=== PATIENT | male | born 1965 | race Caucasian/White ===

== ENCOUNTER 2024-02-21 12:33 | Outpatient (CLI) | payer OTHER, SELFPAY ==
--- NOTE | 2024-02-21 08:00 | DI.RAD_ITS ---
Exam(s) XR STANDING ALIGNMENT EXAM: XR STANDING ALIGNMENT CLINICAL HISTORY: BILATERAL KNE PAIN. TECHNIQUE: 2D digital imaging was performed. COMPARISON: No exams were available for comparison FINDINGS: 3 views There is relatively symmetrical moderate narrowing of the medial compartments of both knees as well a s symmetrical preservation of height of the lateral compartments of both knees. Both hips appear unr emarkable as do both ankles. Bone density is normal. No osseous lesions. IMPRESSION: Moderate degenerative narrowing of the medial compartments of both knees. DATA REPOSITORY: RADIATION DOSE DELIVERED:
--- NOTE | 2024-02-21 08:00 | DI.RAD_ITS ---
Exam(s) XR KNEE LT 3V AP,LAT,WYATT EXAM: XR KNEE LT 3V AP,LAT,WYATT CLINICAL HISTORY: BILATERAL KNEE PAIN. TECHNIQUE: 2D digital imaging was performed. Three views. COMPARISON: CR XR KNEE RT 3V AP,LAT,WYATT from 02/21/2024 FINDINGS: BONES: No acute fracture is present. No bony destructive lesion is seen. JOINTS: Severe narrowing of the medial femoral tibial joint space. Periarticular spurring and sclero sis. Varus angulation and widening of the lateral femoral tibial joint space. Periarticular spurrin g throughout. Patellofemoral joint space is maintained. No joint effusion is seen. SOFT TISSUE: Normal. IMPRESSION: Advanced degenerative changes of the medial femoral tibial joint. DATA REPOSITORY: RADIATION DOSE DELIVERED:
--- NOTE | 2024-02-21 08:00 | DI.RAD_ITS ---
Exam(s) XR KNEE RT 3V AP,LAT,WYATT EXAM: XR KNEE RT 3V AP,LAT,WYATT CLINICAL HISTORY: BILATERAL KNEE PAIN. TECHNIQUE: 2D digital imaging was performed. Three views. COMPARISON: No exams were available for comparison FINDINGS: BONES: No acute fracture is present. No bony destructive lesion is seen. JOINTS: Severe narrowing of the medial femoral tibial joint space. Mild sclerosis and mild periartic ular spurring. Varus angulation and widening of the lateral femoral tibial joint space. Patellofemo ral joint is maintained shows mild periarticular spurring. No joint effusion is seen. SOFT TISSUE: Normal. IMPRESSION: Advanced degenerative changes of the medial femoral tibial joint. DATA REPOSITORY: RADIATION DOSE DELIVERED:
== END 2024-02-21 12:34 | disposition home or self-care (01) ==
LOC: DIORS 12:34
PROVIDERS: Visit Provider Student in an Organized Health Care Education/Training Program
DX: M25.561 Pain in right knee (principal); M25.562 Pain in left knee; M17.11 Unilateral primary osteoarthritis, right knee; M17.12 Unilateral primary osteoarthritis, left knee
CPT/HCPCS: 73562; 77073

== ENCOUNTER 2024-03-17 01:00 | Outpatient (CLI) | payer OTHER, SELFPAY ==
[2024-03-17 11:21] LABS: HCT 38.3 % (40.0-50.0); HGB 13.3 g/dL (13.5-17.5); MCH 29.3 pg (27.0-33.0); MCHC 34.7 % (32.0-36.0); MCV 84 fL (80-95); MPV 10.1 fL (8.0-11.0); Platelet Count 285 10^3/uL (130-400); RBC 4.54 10^6/uL (4.36-5.78); RDW 13.1 % (11.8-14.1); RDW-SD 39.9 fL; WBC 10.68 10^3/uL (4.4-10.8)
[2024-03-17 11:46] LABS: Anion Gap 6.7 mmol/L (3-11); BUN 18 mg/dL (7-18); CO2 28.3 mmol/L (21.0-32.0); Calcium 9.4 mg/dL (8.5-10.1); Chloride 99 mmol/L (98-107); Estimated GFR 86.16 (mL/min/1.73m2); Glucose 173 mg/dL (74-106); Potassium 3.9 mmol/L (3.5-5.1); Sodium 134 mmol/L (136-145)
[2024-03-17 11:55] LABS: Hemoglobin A1C 7.4 % (<5.7)
[2024-03-17 12:13] LABS: TSH (W/Ref FT4) 3.45 uIU/mL (0.36-3.74)
== END 2024-03-17 01:01 | disposition home or self-care (01) ==
LOC: LBO 01:00
PROVIDERS: Physician Assistant; Visit Provider Student in an Organized Health Care Education/Training Program
DX: M17.11 Unilateral primary osteoarthritis, right knee (principal); Z01.818 Encounter for other preprocedural examination; E03.9 Hypothyroidism, unspecified; E11.9 Type 2 diabetes mellitus without complications
CPT/HCPCS: 36415; 80048; 85027; 83036; 84443

== ENCOUNTER 2024-04-25 11:47 | Day surgery (SDC) | payer OTHER, SELFPAY ==
[2024-04-25] VITALS (9 sets, daily range): BP systolic 118–134; BP diastolic 58–87; PULSE 73–88; RESP 14–20; TEMP 36–37; O2SAT 93–98; BMI 35.4
--- NOTE | 2024-04-25 10:04 | W.PM.DS.N ---
Date of service: 04/25/24 Time of Service: 14:59 Discharge Plan Disposition Patient Disposition: Home Condition: Good Discharge Details Reason For Visit: Right knee DJD Attending Provider: Getachew Fowler Primary Care Provider: Kate Mcknight Home Meds and New Rx's Prescriptions: New acetaminophen 500 mg tablet 1,000 mg PO Q8H PRN Qty: 90 0RF Rx Instructions: Take two tablets up to every 8 hours as needed for pain celecoxib [Celebrex] 200 mg capsule 200 mg PO BID PRNQty: 60 0RF Rx Instructions: Take one tablet twice daily for pain and inflammation aspirin 81 mg tablet,delayed release (DR/EC) 81 mg PO BID 30 Days Qty: 60 0RF docusate sodium [Colace] 100 mg capsule 100 mg PO BID Qty: 30 0RF gabapentin 300 mg capsule 300 mg PO QHS Qty: 14 0RF Rx Instructions: Take one tablet at bedtime Continued omeprazole 20 mg capsule,delayed release(DR/EC) 20 mg PO DAILY cholecalciferol (vitamin D3) 125 mcg (5,000 unit) capsule 125 mcg PO DAILY cyclobenzaprine 10 mg tablet 10 mg PO HS ascorbic acid (vitamin C) 1,000 mg capsule 1 g PO Q6H valsartan 320 mg tablet 320 mg PO DAILY amlodipine 10 mg tablet 10 mg PO DAILY hydrochlorothiazide 25 mg tablet 25 mg PO DAILY levothyroxine 88 mcg capsule 88 mcg PO DAILY atorvastatin 20 mg tablet 20 mg PO DAILY sitagliptin 100 mg tablet 100 mg PO DAILY Qty: 30 3RF glipizide 5 mg tablet 5 mg PO DAILY Qty: 30 3RF Discontinued celecoxib [Celebrex] 100 mg capsule 100 mg PO BID acetaminophen [8 Hour Pain Reliever] 650 mg tablet extended release 650 mg PO Q8H PRN No Action oxycodone 5 mg tablet 5 mg PO Q4H MDD 6 tabs PRN (Reason: pain) Qty: 18 0RF Rx Instructions: Take one tablet up to every 4 hours as needed for severe postoperative pain Discharge Instructions Additional Instructions: Total Knee Discharge Instructions Activity: The most important activity is to walk and to work on gentle motion (both flexion and extension). You should try to take short walks a few times a day. It is important that when resting you work on keeping the knee straight. Avoid putting a pillow behind the knee as this will encourage flexion. Work on range of motion exercises as provided by Physical Therapy. - Start outpatient physical therapy within 2 weeks. - You should wear the NILESH hose on both legs for 2 weeks. You may remove these at night. You may also use any compression sock in place of the NILESH hose. - Utilize [employer] to review exercises, see videos on exercises and obtain basic information pertaining to your surgery and your recovery. Dressing: Remove the Jeremie wrap by 2 days after your surgery and put on the NILESH stocking given to you from the hospital. Keep the surgical dressing (underneath the JEREMIE wrap) in place for at least one week. After the first week it may be removed and replaced with light gauze and tape or nothing. The wound and dressing may get wet after 3 days but avoid soaking the dressing or otherwise it will need to be changed. Many people prefer covering the dressing with cling wrap (saran wrap) to minimize it from getting soaked. If it gets wet, just pat dry. If it starts to peel off then it will need to be changed. Medications: - You should take Tylenol and anti-inflammatory Celebrex as your primary pain control medications. If the Celebrex is too expensive or not covered, please call the office for another alternative (Advil/Ibuprofen or Naproxen/Aleve) - You have been prescribed a stronger pain medication Oxycodone for breakthrough pain, take as needed as prescribed. - You take a stomach acid reduction agent at baseline, Omeprazole, continue to take this daily to help reduce stomach acid and reflux. - You have been prescribed Gabapentin to take at night for restlessness and nerve pain. - You will be taking Aspirin 81mg twice a day for DVT prevention unless instructed otherwise. - If you have constipation you should take Colace (which has been prescribed) or Miralax (which is available [id number]). It takes most people 3-4 days to have a bowel movement. Follow-up: 2 weeks If you have any acute concerns or questions, please do not hesitate to contact the office at [phone]. You may contact Dr. Fowler with any questions after hours through the hospital at [phone] or on his cell phone at [phone]. Stand Alone Forms: Anesthesia Discharge Inst., Makayla.Nerve Block Instructions, Alexander Garcia ([facility]) Referrals: Getachew Fowler MD [ [facility] STAFF PHYSICIAN] - Equipment/Supplies: Walker Activity:: Elevate Remove Dressings/Wound Care:: Do Not Remove Shower/Bathe:: Cover Diet:: As Tolerated Discharge Orders Discharge Orders: Discharge Order (Routine); Ordered 04/25/24 Ordered By: Fely De Santiago Discharge Data Discharge Date/Time-TO BE ENTERED AT DEPARTURE: 04/25/24 18:15 DS: Summary Time Spent with Patient providing and/or coordinating discharge services: Less than 30 minutes Status at Discharge Functional status at discharge: uses cane/walker Overall status at discharge: patient is progressing back to baseline Mental Status: mental status grossly normal Speech and Movement: speech and movement normal Mood: congruent mood Affect: normal affect Quality:SDOH Health Related Social Needs: No Data to Display Exam Psych Mental Status: mental status grossly normal Speech and Movement: speech and movement normal Mood: congruent mood Affect: normal affect DS: Data Vitals/I&O Vitals and I&O: Intake & Output 04/24/24 04/24/24 04/25/24 11:59 23:59 11:59 Weight 239 lb 15.994 oz PFSH All Active Problems (Updated 04/26/24 @ 09:35 by Dacia Hodges RN) History of total right knee replacement (Acute 04/25/24) Hypothyroid (Chronic) Osteoarthritis of knees, bilateral (Acute) Diabetes (Chronic) Hyperlipidemia (Acute) Hypertension (Chronic) Surgical History Status post arthroscopy of right knee Status post excision of lipoma Left shoulder S/P colonoscopy Social History Smoking/Tobacco Use Status: Former Tobacco Use Quit Date: 08/09/83 Smoking risk assessment performed?: Yes Alcohol Intake: former Drug use: Never Substance use type: does not use Housing: house Do you feel safe at home: Yes Do you feel safe in your relationship?: Yes Additional Social history: UTAP Time Spent with Patient Time Spent with Patient: <45 minutes Time was spent: preparing to see the patient(eg.review tests), obtaining and/or reviewing separately otained hiistory and counseling the patient
[2024-04-25] MEDS: Celecoxib 200 MG CAP 400 MG PO (13:06)
[2024-04-25] MEDS: Acetaminophen 500 MG TAB 1000 MG PO (13:06)
[2024-04-25] MEDS: Gabapentin 300 MG CAP PO (13:06)
[2024-04-25] MEDS: Lactated Ringers 1,000 ML 80 ML IV (13:08)
--- NOTE | 2024-04-25 13:27 | W.PREOPHP ---
Assessment and Plan Assessment and plan (1) Degenerative joint disease of right knee: Status: Chronic Assessment and plan: Angeol is a 58-year-old male who has known right knee arthritis. He has failed other nonoperative options and is here today for total knee replacement. His diabetes is much better controlled with a fructosamine less than threshold 293. He has no other acute medical issues. Once again I reviewed knee replacement with him. I had a long discussion in regards to surgical replacement of the knee. I went over in detail the possible complications of knee replacement. These include but are not limited to bleeding, infection, pain, stiffness, weakness, damage to nerves, damage to vessels, damage to muscle and tendon, fracture, leg length inequality, wound healing complications, instability, component loosening, and blood clot. Questions were answered. I again expressed that this is a surgery to improve functional quality of life. After a review of the presented information and risks, Angelo desired to proceed. History of Present Illness Narrative: Angelo is a 58-year-old male who has known arthritis but his right knee. Please of the previous office note and history and physical for more detailed information. He was initially postponed due to increasing hyperglycemia in the setting of newly diagnosed diabetes. He has since modified his medications and has a new primary care team with significant improvement with his glucose readings and his fructosamine level of 254. He continues have pain about the right knee and is here today for a right knee replacement. Denies any chest pain, shortness of breath, or recent illness. Review of Systems All systems reviewed & are unremarkable except as noted in HPI and below PFSH All Active Problems Hypothyroid (Chronic) Degenerative joint disease of right knee (Chronic) Osteoarthritis of knees, bilateral (Acute) Diabetes (Chronic) Hyperlipidemia (Acute) Hypertension (Chronic) Surgical History Status post arthroscopy of right knee Status post excision of lipoma Left shoulder S/P colonoscopy Social History Smoking/Tobacco Use Status: Former Tobacco Use Quit Date: 08/09/83 Smoking risk assessment performed?: Yes Alcohol Intake: former Drug use: Never Substance use type: does not use Housing: house Do you feel safe at home: Yes Do you feel safe in your relationship?: Yes Additional Social history: UTAP Meds Allergies and Home Medications Allergies Allergy/AdvReac Type Severity Reaction Status Date / Time Penicillins Allergy Severe Anaphylaxis Verified 04/25/24 12:31 shellfish derived Allergy Severe Anaphylaxis Verified 04/25/24 12:31 Home Medications ?Medication ?Instructions ?Recorded ?Confirmed ?Type amlodipine 10 mg tablet 10 mg PO DAILY 02/21/24 04/25/24 History hydrochlorothiazide 25 mg tablet 25 mg PO DAILY 02/21/24 04/25/24 History levothyroxine 88 mcg capsule 88 mcg PO DAILY 02/21/24 04/25/24 History valsartan 320 mg tablet 320 mg PO DAILY 02/21/24 04/25/24 History ascorbic acid (vitamin C) 1,000 mg 1 g PO Q6H 03/17/24 04/24/24 History capsule cholecalciferol (vitamin D3) 125 125 mcg PO DAILY 03/17/24 04/25/24 History mcg (5,000 unit) capsule cyclobenzaprine 10 mg tablet 10 mg PO HS 03/17/24 04/25/24 History omeprazole 20 mg capsule,delayed 20 mg PO DAILY 03/17/24 04/25/24 History release atorvastatin 20 mg tablet 20 mg PO DAILY 03/20/24 04/25/24 History glipizide 5 mg tablet 5 mg PO DAILY #30 tabs 03/23/24 04/25/24 Rx sitagliptin 100 mg tablet 100 mg PO DAILY #30 tabs 03/23/24 04/25/24 Rx acetaminophen 500 mg tablet 1,000 mg (2 x 500 mg) PO Q8H PRN 04/25/24 Rx pain #90 tabs aspirin 81 mg tablet,delayed 81 mg PO BID 30 days #60 tabs 04/25/24 Rx release celecoxib 200 mg capsule (Celebrex) 200 mg PO BID PRN #60 caps 04/25/24 Rx docusate sodium 100 mg capsule 100 mg PO BID #30 caps 04/25/24 Rx (Colace) gabapentin 300 mg capsule 300 mg PO QHS #14 caps 04/25/24 Rx oxycodone 5 mg tablet 5 mg PO Q4H PRN #18 tabs 04/25/24 Rx Exam Const General: cooperative, healthy appearing, comfortable and no acute distress Resp Effort & Inspection: normal respiratory effort Auscultation: clear to auscultation bilaterally Cardio Rate: regular rate Rhythm: regular rhythm Results Last Vital Signs Temp 36.2 C L 04/25/24 12:36 Pulse 88 04/25/24 12:36 Resp 16 04/25/24 12:36 BP 128/67 04/25/24 12:36 Pulse Ox 97 04/25/24 12:36
--- NOTE | 2024-04-25 13:56 | W.ANESPRE ---
General Info Date of Service Date Performed: 04/25/24 Height: 5 ft 8 in Weight: 105.7 kg Body Mass Index (BMI): 35.4 Surgical Procedure: Operation Date: 04/25/24 14:10 Proposed Procedure Side Surgeon p Knee Total Arthroplasty Right Getachew Fowler MD Meds Allergies and Home Medications Allergies Allergy/AdvReac Type Severity Reaction Status Date / Time Penicillins Allergy Severe Anaphylaxis Verified 04/25/24 12:31 shellfish derived Allergy Severe Anaphylaxis Verified 04/25/24 12:31 Home Medication ?Medication ?Instructions ?Recorded amlodipine 10 mg tablet 10 mg PO DAILY 02/21/24 hydrochlorothiazide 25 mg tablet 25 mg PO DAILY 02/21/24 levothyroxine 88 mcg capsule 88 mcg PO DAILY 02/21/24 valsartan 320 mg tablet 320 mg PO DAILY 02/21/24 ascorbic acid (vitamin C) 1,000 mg 1 g PO Q6H 03/17/24 capsule cholecalciferol (vitamin D3) 125 125 mcg PO DAILY 03/17/24 mcg (5,000 unit) capsule cyclobenzaprine 10 mg tablet 10 mg PO HS 03/17/24 omeprazole 20 mg capsule,delayed 20 mg PO DAILY 03/17/24 release atorvastatin 20 mg tablet 20 mg PO DAILY 03/20/24 glipizide 5 mg tablet 5 mg PO DAILY #30 tabs 03/23/24 sitagliptin 100 mg tablet 100 mg PO DAILY #30 tabs 03/23/24 acetaminophen 500 mg tablet 1,000 mg (2 x 500 mg) PO Q8H PRN 04/25/24 pain #90 tabs aspirin 81 mg tablet,delayed 81 mg PO BID 30 days #60 tabs 04/25/24 release celecoxib 200 mg capsule (Celebrex) 200 mg PO BID PRN #60 caps 04/25/24 docusate sodium 100 mg capsule 100 mg PO BID #30 caps 04/25/24 (Colace) gabapentin 300 mg capsule 300 mg PO QHS #14 caps 04/25/24 oxycodone 5 mg tablet 5 mg PO Q4H PRN #18 tabs 04/25/24 Current Visit Medications: Current Medications Generic Name Dose Route Start Last Admin Trade Name Freq PRN Reason Stop Dose Admin Acetaminophen 1,000 mg 04/25/24 06:00 04/25/24 13:06 Acetaminophen 500 Mg Tab PO 04/25/24 18:00 1,000 mg PREOP CHERRY Administration Celecoxib 400 mg 04/25/24 06:00 04/25/24 13:06 Celecoxib 200 Mg Cap PO 04/25/24 18:00 400 mg PREOP CHERRY Administration Gabapentin 300 mg 04/25/24 06:00 04/25/24 13:06 Gabapentin 300 Mg Cap PO 04/25/24 18:00 300 mg PREOP CHERRY Administration Hydromorphone HCl 0.5 mg 04/25/24 10:02 Hydromorphone 2 Mg/Ml Syr IVP 05/25/24 10:01 Q2H PRN PRN Ringer's Solution 1,000 mls @ 80 mls/hr 04/25/24 06:00 04/25/24 13:08 IV 05/24/24 23:59 80 mls/hr INFUSION CHERRY Administration Cefazolin Sodium/Dextrose 2 gm in 50 mls @ 100 mls/hr 04/25/24 06:00 Ancef Duplex IVPB 04/25/24 18:00 PREOP CHERRY Tranexamic Acid/Sodium Chloride 1,000 mg in 100 mls @ 600 mls/hr 04/25/24 06:00 IVPB 04/25/24 18:00 PREOP CHERRY Cefazolin Sodium/Dextrose 1 gm in 50 mls @ 100 mls/hr 04/25/24 12:00 Ancef Duplex IVPB 04/26/24 04:29 Q8H CHERRY IV Miscellaneous Supplies 1 each 04/25/24 06:00 Iv Access IV 05/24/24 23:59 DIRECTED CHERRY Oxycodone HCl 0 mg 04/25/24 10:02 Oxycodone 5 Mg Tab PO 05/25/24 10:01 Q3H PRN PRN Pain Sodium Chloride 0 ml 04/25/24 06:00 Normal Saline Flush 10 Ml Syr IV 05/24/24 23:59 PRN PRN Sodium Chloride 0 ml 04/25/24 06:00 Normal Saline 10 Ml Vial IJ 05/24/24 23:59 DIRECTED PRN Sterile Water 0 ml 04/25/24 06:00 Water,Injection,Sterile 10 Ml Vial IJ 05/24/24 23:59 DIRECTED PRN PFSH Active Problems Active Problems: Problem Status Onset Code Hypothyroid Chronic E03.9 Degenerative joint disease of right knee Chronic M17.11 Osteoarthritis of knees, bilateral Acute M17.0 Diabetes Chronic E11.9 Hyperlipidemia Acute E78.5 Hypertension Chronic I10 Surgical History Surgical History Status post arthroscopy of right knee Status post excision of lipoma Left shoulder S/P colonoscopy Tobacco Smoking/Tobacco Use Status: Former Tobacco Use Alcohol Alcohol Intake: former Substance Use Substance use: Never Substance use type: does not use Vital Signs and Lab Results Vital Signs Most Recent Vital Signs in EMR: Most Recent Vital Signs Temp Pulse Resp BP Pulse Ox 36.2 C L 88 16 128/67 97 04/25/24 12:36 04/25/24 12:36 04/25/24 12:36 04/25/24 12:36 04/25/24 12:36 Point of Care Results Point of Care Results: Finger Stick Blood Glucose 124 04/25/24 12:41 Lab Results Blood Type / Crossmatch: No Data to Display Complete Blood Count: No Data to Display Complete Metabolic Panel: No Data to Display Liver Function Panel: No Data to Display Coagulation Panel: No Data to Display Cardiac Panel: No Data to Display Arterial Blood Gas: No Data to Display Venous Blood Gas: No Data to Display Pancreas Panel: No Data to Display Thyroid Panel: No Data to Display Infectious Disease: No Data to Display Blood Cultures: No Data to Display Toxicology Panel: No Data to Display Anesthesia Assessment and Plan Anesthesia History Personal History: No History of General Anesthesia Family History: No Family History of Anesthesia Complications Exercise Tolerance Exercise Tolerance: Metabolic Equivalents>4 Pertinent Negatives Pertinent Negatives: No Symptoms of GERD, No Major Cardiovascular Symptoms or Complaints, No Major Pulmonary Symptoms or Complaints and No History of CVA/TIA Cardiac & Pulmonary Exam Cardiac Exam: Normal S1/S2 Heart Sounds Pulmonary Exam: Clear Bilateral Breath Sounds Implantable Cardiac Device Does patient have a Pacemaker or an ICD?: No Airway Exam Known Difficult Airway: No Mallampati Class: 2 Mouth Opening: Normal (> 3cm) Thyromental Distance: Less than 3 cm Neck Range of Motion: Full ROM Neck Circumference: Normal Teeth Condition: Normal Dentition ASA Classification ASA Score: ASA 2 Emergency Case?: No NPO Status NPO Status: NPO Clears >2 hours, Solids >8 hours Anesthesia Plan Resuscitation Status: Full Code Anesthesia Technique: Spinal Anesthesia Airway Planned: Natural Airway Pain Management: Surgeon and patient request nerve block Monitors Used: Standard Monitors
[2024-04-25] MEDS: ceFAZolin 2 GM/50 ML BAG IVPB (14:42)
[2024-04-25] MEDS: TRANEXAMIC ACID/SOD. CHL. 1,000 MG/100 ML BAG 600 MG IVPB (15:00)
--- NOTE | 2024-04-25 15:17 | W.ANESNERVE ---
Nerve Block Single Injection Procedure Date and Time Date Performed: 04/25/24 Procedure Start: 14:05 Location Where Procedure Performed Procedure Location: Day Surgery Unit Reason Performed: Postoperative Analgesia Requesting Provider: Getachew Fowler Timeout Performed Timeout Performed: Yes Monitoring Used ECG, Blood Pressure, SpO2 and See EMR for corresponding vital signs Sterility Sterility: Hand Hygiene, Surgical Cap, Surgical Mask, Sterile Gloves and Chlorhexidine Sedation Given During Procedure Sedation Given (Indicate Dose Given): No Sedation given Patient Mental Status Patient Mental Status: Awake Nerve Block 1st Nerve Block: Laterality: Right Block Type: Adductor Canal Ultrasound Image Saved?: Yes Needle / Catheter Used: 100mm SonoPlex II Local Anesthetic Bolus (Indicate Dose Given): Lidocaine used for local infiltration of skin, Injected in 3-5ml increments after negative blood aspiration, Bupivacaine 0.25% Dose:: 10ml and Exparel Dose:: 10ml Additives (Indicate Dose Given): None Ultrasound: Sterile probe cover and gel used Nerve Stimulator: Not Used Paresthesia: None Procedure Tolerated: No Complications and Patient tolerated well Procedure Outcome: Successful Performed By: Bob Pacheco
--- NOTE | 2024-04-25 16:37 | ROE_ITS ---
Date of service: 04/25/24 Time of Service: 14:45 Operative Note Operative Note DATE OF PROCEDURE: 04/25/24 PRE-OP DIAGNOSIS: Right Knee Osteoarthritis POST-OP DIAGNOSIS: same PROCEDURE: Right Total Knee Replacement SURGEON: Getachew Fowler SLIP COVER SEWER: Fely De Santiago ANESTHESIA TYPE: Spinal Refer to Anesthesia Record ESTIMATED BLOOD LOSS: 150 PATHOLOGY: none sent TOURNIQUET TIME: 0 COMPLICATIONS: None Patient was transported to: PACU Patient's condition: stable Implants: 1. Depuy Attune Cementless Cruciate Retaining Femoral Component, Size 7 2. Depuy Attune Cementless Fixed Bearing Tibial Component, Size 7 3. Depuy Attune 7x6 CR/FB Poly 4. Depuy Attune Patellar Component, Size 38 Indications: I have seen Angelo in clinic for symptoms of knee arthritis, confirmed with radiographic findings. He has exhausted nonoperative methods and was having significant limitations in daily function and desired better function and less pain. I discussed the technical details of a knee replacement. I explained the risks of the procedure to include, but not limited to, bleeding, infection, pain, stiffness, fracture, damage to nerves and vessels, damage to muscles and tendons, loosening, need for repeat procedure, blood clot and cardiopulmonary d emise. Despite these risks, Angelo elected to proceed. Findings: There was significant signs of arthritis throughout the knee, mostly concentrated in the medial compartment but still throughout. Procedure Description: Angelo was greeted in the preoperative holding area where the correct side was identified and marked. The consent was reviewed with the patient and signed. The history and physical was updated. All questions were answered. Preoperative medications were administered: Acetaminophen 1000mg, Celebrex 400mg, and Gabapentin 300mg. An adductor canal block was then administered by the anesthesia team in the DSU. Angeol was taken back to the operating room. A spinal anesthestic was then administered. The patient was placed into the supine position on the operating room table. A nonsterile tourniquet was placed high onto the leg but only used for cementing. Posts were placed for positioning during the procedure. All bony prominences were well padded. Prophylactic antibiotics in the form of Cefazolin were administered. 1g of Tranxemic Acid was given intravenously within 30 minutes of incision. The right leg was then prepped with Chloraprep and draped in a standard fashion with impervious stockinette. A second prep with Chloraprep was performed prior to application of Iodine impregnated skin protection. A timeout to confirm correct identity, side and site, procedure, allergies, anesthesia, and medical concerns was performed. With the knee in some flexion, a midline incision was made overlying the knee. Full thickness skin flaps were raised once the extensor mechanism was encountered. These were raised medially and laterally. Any bleeding was controlled with electrocautery. Once the extensor mechanism was fully exposed, a medial parapatellar arthrotomy was performed in a flexed position. All bleeding from the arthrotomy and the geniculate arteries was coagulated. A medial subperiosteal peel was performed with electrocautery to the midcoronal plane. Due to the significant varus deformity the entire medial tibial plateau was exposed. The fat pad was removed while keeping the patellar tendon protected. The anterior distal femur synovium was removed for later visualization. The ACL and PCL were resected and the anterior horn of the lateral meniscus was transected. The knee was then flexed with the patella everted. Large osteophytes from the tibia were removed. Large osteophytes from the femur were removed. Using a step drill, and based on preoperative templating, the femoral canal was entered. This was done with a step drill without any difficulty. The intramedullary distal femoral cut guide was inserted, set to a 5 degree valgus cut and 9mm cut thickness. The distal femoral cut guide was then held in position and pinned. With the soft tissues protected, the distal cut was performed. This was passed over a few times to ensure a planar cut. I then turned attention to the tibia. The extramedullary guide was placed onto the leg. The distal aspect was slid medial to adjust for position of center of ankle and stay in line with shaft of the tibia. Approximately 3-5 degrees of posterior slope was kept in the proximal cutting guide. The center of the guide was aligned with the PCL. The stylus was used to assess cut thickness. The medial side, most involved side, was set for a 4mm cut. This was then held in position and pinned into place with 2 additional pins and a cross pin for stability. The medial and lateral collateral ligaments were protected and the cut was performed. With this completed, it was assessed and noted to be of appropriate dimensions. The guide was removed. A spacer block was inserted and the knee was brought into extension. The 6mm spacer block provided full extension, without hyperextension and with stability of both the medial and lateral collateral ligaments was assessed. The pins from the femur and the tibia were then removed. The distal femur was then sized. The anterior stylus was placed onto the lateral ridge of the anterior femur. This indicated a size 7 femur. The external rotation of the guide was adjusted to 3 degrees to match the epicondylar axis, perpendicular to Malik?s line. The 4-in-1 cutting guide was the placed. The posterior medial femur cut was evaluated and appeared of good thickness. The spacer block was inserted underneath the cutting guide and stability was confirmed in 90 degrees of flexion. An jessica wing was used to confirm appropriate position of the anterior cut to avoid notching. This cutting guide was ensured to be flush on the cut surface and then pinned into place with headed pins. While protecting the soft tissues, quad tendon, and collateral ligaments, the anterior and posterior cuts were performed with a saw. The central two pins were removed and the posterior and anterior chamfers were cut next. The notch-cutting guide was placed. This was pinned to lateralize the femoral component as much as possible while keeping it flush on the cut surface. This was then pinned into position. A reciprocating saw was used to make the notch cut. A rasp smoothed the cut surfaces. The medial and lateral menisci were removed. A trial femoral component was then inserted, impacted down to the cut surfaces, and the lug holes were drilled. A provisional trial tibial component was placed and the knee was brought through range of motion. There was noted to be excellent extension and flexion. There was no significant instability. The patella was tracking without thumbs. A size 6mm polyethylene component provided the best range of motion and stability with less than 2mm gapping with medial and lateral stress and full extension without significant hyperextension. The tibial cut surface was fully exposed. The tibia was then sized as a 7. The tibia had been previously marked during trialing to correspond to the center of the tibial component to help with rotation. The trial was aligned to this arnoldo, approximately rotated to the medial 1/3rd of the tibial tubercle. The trial was pinned into place. The tibia was prepared with a reamer and a keel punch and lug holes. The knee was then brought into extension and the patella was measured as 27mm. Using the patellar clamp and cut guide, this was resected to a flat surface with at least 13mm of thickness remaining. The size 38 patella fit the best. This was oriented and then clamped into position. The lugs were drilled. The trial components were removed. The final components were opened on the back table. The periosteal and capsular tissues, especially posteriorly, around the knee were then systematically injected with a periarticular cocktail consisting of 246mg of Ropivacaine, 0.5mg of Epinephrine, 0.08mg of Clonidine, and 30mg of Ketorolac, diluted to 100cc. On the back table, with the implants opened, the cement was mixed. One batch of high viscosity cement was prepared with vacuum assistance. After the cement was ready a small amount was placed on the cut surface of the patella and the patellar button was clamped into position and held. While the cement was hardening, the cementless knee components were placed. Starting with the tibial component, the tibia was subluxed anteriorly and the lug holes of the component were lined up. The tibia was then impacted with an impactor and mallet until the tibial component was in contact with the tibia. The final polyethylene component was inserted. Then, the femoral component was inserted. The lug holes were aligned and the component was impacted into position. The knee was irrigated with Surgiphor Betadine solution. This was allowed to sit in the knee for 3 minutes and then it was irrigated out with saline. After the cement had finally cured, approximately 15min, the clamp was removed from the patella and the knee was taken through range of motion. The patella was tracking with a no-thumbs technique. The capsule was then reapproximated with a No. 1 Vicryl at multiple locations. The capsule was finally closed with a No. 2 Stratafix, barbed suture. The second dosing of 1g TXA was started. Deep tissues were then reapproximated with 0 Vicryl and 2-0 Vicryl. The skin was closed with a running 3-0 Monocryl in a subcuticular fashion. This was reinforced with skin glue. A Mepilex silver dressing was applied along with a gwzu-ye-nosad WINSTON wrap. A CryoCuff was applied. Angelo was transferred to the hospital bed without difficulty an suffering no apparent complication. He has a good prognosis. Physical therapy will start today and without restrictions, weight-bearing as tolerated. Aspirin 81mg BID will be used for DVT prophylaxis.
--- NOTE | 2024-04-25 22:13 | W.ANESPOSTOP ---
Postoperative Evaluation Date, Time and Location Date Performed: 04/25/24 Time Performed: 16:31 Patient Location: PACU Vital Signs Most Recent Imported Vital Signs: Most Recent Vital Signs Temp Pulse Resp BP Pulse Ox 36.4 C L 78 16 134/68 95 04/25/24 17:45 04/25/24 17:45 04/25/24 17:45 04/25/24 17:45 04/25/24 17:45 Pain Score Most Recent Pain Score: Most Recent Pain Score Pain Level 4 04/25/24 17:45 Assessment Mental Status: Awake (Alert & Oriented to Patient Baseline) Airway and Respiratory Function: Patent airway with normal (patient baseline) respiratory exam Cardiovascular Function: Hemodynamically Stable Hydration Status: Adequately Hydrated Nausea & Vomiting: No Nausea or Vomiting Pain: Pain is tolerable per patient Peripheral Nerve Block: Patient did not receive a nerve block
== END 2024-04-25 18:15 | disposition home or self-care (01) ==
PROVIDERS: PCP Family Medicine; Visit Provider Student in an Organized Health Care Education/Training Program
PROC: (CPT 27447; principal; 2024-04-25 14:00)
DX: M17.11 Unilateral primary osteoarthritis, right knee (principal); E11.9 Type 2 diabetes mellitus without complications; Z79.84 Long term (current) use of oral hypoglycemic drugs; E03.9 Hypothyroidism, unspecified; I10 Essential (primary) hypertension; E78.5 Hyperlipidemia, unspecified
CPT/HCPCS: 27447; 76942; 97162; C1776; C9290; J0665; J0690; J1100; J2250; J2401; J2405; J2704

== ENCOUNTER 2024-05-11 10:17 | Outpatient (CLI) | payer OTHER, SELFPAY ==
--- NOTE | 2024-05-11 09:30 | DI.RAD_ITS ---
Exam(s) XR KNEE RT 1V XR STANDING ALIGNMENT EXAM: XR STANDING ALIGNMENT CLINICAL HISTORY: 1ST POST OP S/P R TKA. TECHNIQUE: 2D digital imaging was performed. Six images were obtained. COMPARISON: CR XR KNEE LT 3V AP,LAT,WYATT from 02/21/2024 CR XR STANDING ALIGNMENT from 02/21/2024 CR XR KNEE RT 3V AP,LAT,WYATT from 02/21/2024 FINDINGS: BONES: The hips are well maintained. The patient now has a right total knee replacement. The orthop edic hardware appears in good position. No suspicious lucencies are seen about the orthopedic hardwa re. In the left knee, there is marked narrowing of the medial femoral tibial joint. Osteophytes are seen both medially and laterally. The ankles are well maintained.There is no significant leg length discrepancy. SOFT TISSUE: Vascular calcifications are present. There is mild soft tissue swelling around the righ t knee consistent with recent hardware placement. IMPRESSION: 1. Right total knee replacement. 2. Osteoarthritis of the left knee. DATA REPOSITORY: RADIATION DOSE DELIVERED:
== END 2024-05-11 10:18 | disposition home or self-care (01) ==
LOC: DIORS 10:18
PROVIDERS: PCP Family Medicine; Visit Provider Student in an Organized Health Care Education/Training Program
DX: Z96.651 Presence of right artificial knee joint (principal); Z47.1 Aftercare following joint replacement surgery; M17.12 Unilateral primary osteoarthritis, left knee
CPT/HCPCS: 73560; 77073

== ENCOUNTER 2024-09-04 02:55 | Outpatient (CLI) | payer OTHER, SELFPAY ==
[2024-09-04 10:46] LABS: HCT 41.6 % (40.0-50.0); HGB 14.3 g/dL (13.5-17.5); MCH 27.6 pg (27.0-33.0); MCHC 34.4 % (32.0-36.0); MCV 80 fL (80-95); MPV 10.2 fL (8.0-11.0); Platelet Count 307 10^3/uL (130-400); RBC 5.19 10^6/uL (4.36-5.78); RDW 14.2 % (11.8-14.1); RDW-SD 41.1 fL; WBC 9.25 10^3/uL (4.4-10.8)
[2024-09-04 10:55] LABS: Hemoglobin A1C 6.9 % (<5.7)
[2024-09-04 11:01] LABS: Anion Gap 5.8 mmol/L (3-11); BUN 11 mg/dL (7-18); CO2 32.2 mmol/L (21.0-32.0); CREATININE 1.1 mg/dL (0.70-1.30); Calcium 9.5 mg/dL (8.5-10.1); Chloride 99 mmol/L (98-107); Estimated GFR 76.85 (mL/min/1.73m2); Glucose 86 mg/dL (74-106); Potassium 4.1 mmol/L (3.5-5.1); Sodium 137 mmol/L (136-145)
[2024-09-06 14:05] LABS: Fructosamine 266 mcmol/L (200 - 285)
== END 2024-09-04 02:56 | disposition home or self-care (01) ==
LOC: LBO 02:55
PROVIDERS: PCP Nurse Practitioner Family; Visit Provider Student in an Organized Health Care Education/Training Program
DX: M17.12 Unilateral primary osteoarthritis, left knee (principal); Z01.818 Encounter for other preprocedural examination; E11.9 Type 2 diabetes mellitus without complications
CPT/HCPCS: 36415; 80048; 85027; 82985; 83036

== ENCOUNTER 2024-09-19 07:07 | Day surgery (SDC) | payer OTHER, SELFPAY ==
--- NOTE | 2024-04-25 17:10 | PT.INIE ---
PT Notes Physical Therapy Day Surgery Initial Evaluation Date: 04-25-2024 Referring Doctor: Dr. Fowler PT Orders: PT CONSULT: PT eval and treat status post Ortho surgery Precautions: Weightbearing as tolerated no restrictions Patient Profile/Admitting Diagnosis: Patient is 58-year-old male admitted for elective right TKA due to OA/DJD under spinal anesthesia. Postop uncomplicated PMHX: DJD, OA bilateral knees, DM, hyperlipidemia, HTN, hypothyroid Social History/Home Situation: Patient lives with his 1 level home 3 steps with 2 rails to enter. Patient independent ambulation ADLs, driving, meal prep, yard work. able to assist as needed. Equipment Owned/DME: Patient does not own any DME he was issued and fitted for a FWW Subjective: Patient reports his leg still feels a little numb while lying supine in bed. During ambulation he reported achiness and rated pain as stated 4/10 Objective: [] General Observation: Male semireclined on stretcher agreeable to participate able to answer all questions Mental Status: Alert and oriented x 4 Pain: Right knee 3/10 at rest, 4/10 with ambulation ROM: [] Bilateral upper extremities within normal limits Right Lower Extremity: Hip and ankle within normal limits, knee 5-89 Left Lower Extremity: Within normal limits Strength: [] Bilateral upper extremities 5/5 Right Lower Extremity: Hip and ankle grossly 3/5, knee 3 -/5 quad , hamstring 2+/5 Left Lower Extremity: 5/5 Sensation: Intact with slightly diminished to light touch right lower extremity Bed Mobility/Transfers: Supine to sit supervision Sit to supine contact-guard assist with increased time Sit to stand supervision Stand to sit supervision Bed to chair supervision with FWW Gait: Patient ambulates with FWW at supervised level level surfaces including turns 150 feet step to pattern decreased knee flexion right, decreased step length on right, excessive weightbearing through bilateral upper extremities to unweight right lower extremity. Stairs: 2 steps x 2 with bilateral rails supervision with cues for proper sequencing of step to pattern Balance: [] Static Sitting: Normal Dynamic Sitting: Good Static Standing: Good Dynamic Standing: Good with device Special Tests: [] Mobility Limitations Standardized Measure [] [facility] AM-PAC 6 clicks Basic Mobility Inpatient Short Form: [] Raw Score: 23 CMS Score: 11.20% disability Informed Consent/Education: Patient and instructed in purpose of PT consult. Packet containing TKA exercise protocol has been given to patient. Education and training on initial set of exercises that can be done at home have been completed with patient and . Patient fitted and instructed in proper use of FWW. and patient instructed in sequencing for stairs and step to pattern ascending leading with left lower extremity descending leading with right lower extremity. Assessment: Patient presents with clinical signs and symptoms consistent with current/admitting diagnoses that have resulted to mobility limitations, gait instability, generalized weakness, and impairment of motor control as demonstrated by the following impairment level findings: 1. Decreased strength to right knee major muscle groups 2. Impaired standing balance 3. Limitation of joint range of motion in right knee Impairments are contributing to the following functional limitations: 1. Inability to safely ambulate without assistive device 2. Increase completion time for mobility ADL performance 3. Increased fall risk Patient is assessed as a moderate complexity based on the following: History: 58-year-old male with impairment level findings, functional limitations, and past medical history as indicated above Examination: Demonstrable impairment in strength, balance, and mobility level with underlying impairments and functional limitations as documented above Presentation: Stable Decision Making: Low Goals: N/A. Plan of Care/Treatment Plan: N/A. DISCHARGE RECOMMENDATIONS: Home with outpatient PT as scheduled TREATMENT CODE/TIME: [id number] Thank you for the opportunity to participate in the care of this patient. Please sign an return this page within 30 days if you agree with the above POC. Thank you! Physician Signature Date [facility]
[2024-09-19] VITALS (35 sets, daily range): BP systolic 118–173; BP diastolic 67–94; PULSE 75–88; RESP 11–22; TEMP 35.9–37.3; O2SAT 92–98; BMI 38.0
--- NOTE | 2024-09-19 07:21 | W.PM.DSUDISC ---
Date of service: 09/19/24 Discharge Plan Disposition Patient Disposition: Home Condition: Good Discharge Details Reason For Visit: Left knee DJD Attending Provider: Getachew Fowler Primary Care Provider: Dick Quiros Home Meds and New Rx's Prescriptions: New acetaminophen 500 mg tablet 1,000 mg PO Q8H PRN Qty: 90 0RF Rx Instructions: Take two tablets up to every 8 hours as needed for pain celecoxib [Celebrex] 200 mg capsule 200 mg PO BID PRNQty: 60 0RF Rx Instructions: Take one tablet twice daily for pain and inflammation aspirin 81 mg tablet,delayed release (DR/EC) 81 mg PO BID 30 Days Qty: 60 0RF dexamethasone 4 mg tablet 4 mg PO DAILY Qty: 2 0RF Rx Instructions: Take one tablet once daily for two days docusate sodium [Colace] 100 mg capsule 100 mg PO BID Qty: 30 0RF gabapentin 300 mg capsule 300 mg PO QHS Qty: 14 0RF Rx Instructions: Take one tablet at bedtime oxycodone 5 mg tablet 5 mg PO Q4H PRNQty: 18 0RF Rx Instructions: Take one tablet up to every 4 hours as needed for severe postoperative pain Continued omeprazole 20 mg capsule,delayed release(DR/EC) 20 mg PO HS cholecalciferol (vitamin D3) 125 mcg (5,000 unit) capsule 125 mcg PO DAILY cyclobenzaprine 10 mg tablet 10 mg PO HS ascorbic acid (vitamin C) 1,000 mg capsule 1 g PO Q6H valsartan 320 mg tablet 320 mg PO DAILY amlodipine 10 mg tablet 10 mg PO DAILY hydrochlorothiazide 25 mg tablet 25 mg PO DAILY levothyroxine 88 mcg capsule 88 mcg PO DAILY atorvastatin 20 mg tablet 20 mg PO DAILY sitagliptin 100 mg tablet 100 mg PO DAILY Qty: 30 0RF glipizide 5 mg tablet See Rx Instructions .ROUTE .COMPLEX Qty: 30 2RF Dose Instruction: TAKE ONE TABLET BY MOUTH ONCE DAILY Rx Instructions: TAKE ONE TABLET BY MOUTH ONCE DAILY Discontinued celecoxib 100 mg capsule 100 mg PO BID acetaminophen 500 mg tablet 1,000 mg PO Q8H PRN Qty: 90 0RF Rx Instructions: Take two tablets up to every 8 hours as needed for pain Discharge Instructions Additional Instructions: Total Knee Discharge Instructions Activity: The most important activity is to walk and to work on gentle motion (both flexion and extension). You should try to take short walks a few times a day. It is important that when resting you work on keeping the knee straight. Avoid putting a pillow behind the knee as this will encourage flexion. Work on range of motion exercises as provided by Physical Therapy. - Start outpatient physical therapy within 2 weeks. - You should wear the NILESH hose on both legs for 2 weeks. You may remove these at night. You may also use any compression sock in place of the NILESH hose. - Utilize [employer] to review exercises, see videos on exercises and obtain basic information pertaining to your surgery and your recovery. Dressing: Remove the Jeremie wrap by 2 days after your surgery and put on the NILESH stocking given to you from the hospital. Keep the surgical dressing (underneath the JEREMIE wrap) in place for at least one week. After the first week it may be removed and replaced with light gauze and tape or nothing. The wound and dressing may get wet after 3 days but avoid soaking the dressing or otherwise it will need to be changed. Many people prefer covering the dressing with cling wrap (saran wrap) to minimize it from getting soaked. If it gets wet, just pat dry. If it starts to peel off then it will need to be changed. Medications: - You should take Tylenol and anti-inflammatory Celebrex as your primary pain control medications. If the Celebrex is too expensive or not covered, please call the office for another alternative (Advil/Ibuprofen or Naproxen/Aleve) - You have been prescribed a stronger pain medication Oxycodone for breakthrough pain, take as needed as prescribed. - You take a stomach acid reduction agent at baseline, Omeprazole, continue to take this daily to help reduce stomach acid and reflux. - You have been prescribed Gabapentin to take at night for restlessness and nerve pain. - You will be taking Aspirin 81mg twice a day for DVT prevention unless instructed otherwise. - You have also been prescribed Decadron to take to control post-operative nausea and pain. You will start this tomorrow. - If you have constipation you should take Colace (which has been prescribed) or Miralax (which is available [id number]). It takes most people 3-4 days to have a bowel movement. Follow-up: 2 weeks If you have any acute concerns or questions, please do not hesitate to contact the office at [phone]. You may contact Dr. Fowler with any questions after hours through the hospital at [phone] or on his cell phone at [phone]. Referrals: Getachew Fowler MD [ [facility] STAFF PHYSICIAN] - Equipment/Supplies: Walker Activity:: Elevate Remove Dressings/Wound Care:: Do Not Remove Shower/Bathe:: Cover Diet:: As Tolerated Discharge Orders Discharge Orders: Discharge Order (Routine); Ordered 09/19/24 Ordered By: Fely De Santiago
[2024-09-19] MEDS: Celecoxib 200 MG CAP 400 MG PO (07:53)
[2024-09-19] MEDS: Acetaminophen 500 MG TAB 1000 MG PO (07:53)
[2024-09-19] MEDS: Gabapentin 300 MG CAP PO (07:53)
[2024-09-19] MEDS: Lactated Ringers 1,000 ML 80 ML IV ×2 (07:54→12:05)
--- NOTE | 2024-09-19 08:06 | W.ANESPRE ---
General Info Date of Service Date Performed: 09/19/24 Height: 5 ft 8 in Weight: 113.4 kg Body Mass Index (BMI): 38.0 Surgical Procedure: Operation Date: 09/19/24 09:40 Proposed Procedure Side Surgeon p Knee Total Arthroplasty, Cementless CR Left Getachew Fowler MD Meds Allergies and Home Medications Allergies Allergy/AdvReac Type Severity Reaction Status Date / Time Penicillins Allergy Severe Anaphylaxis Verified 09/19/24 07:42 shellfish derived Allergy Severe Anaphylaxis Verified 09/19/24 07:42 Home Medication ?Medication ?Instructions ?Recorded amlodipine 10 mg tablet 10 mg PO DAILY 02/21/24 hydrochlorothiazide 25 mg tablet 25 mg PO DAILY 02/21/24 levothyroxine 88 mcg capsule 88 mcg PO DAILY 02/21/24 valsartan 320 mg tablet 320 mg PO DAILY 02/21/24 ascorbic acid (vitamin C) 1,000 mg 1 g PO Q6H 03/17/24 capsule cholecalciferol (vitamin D3) 125 125 mcg PO DAILY 03/17/24 mcg (5,000 unit) capsule cyclobenzaprine 10 mg tablet 10 mg PO HS 03/17/24 omeprazole 20 mg capsule,delayed 20 mg PO HS 03/17/24 release atorvastatin 20 mg tablet 20 mg PO DAILY 03/20/24 sitagliptin 100 mg tablet 100 mg PO DAILY #30 tabs 07/01/24 glipizide 5 mg tablet See Rx Instructions .Route 07/29/24 .COMPLEX #30 tabs acetaminophen 500 mg tablet 1,000 mg (2 x 500 mg) PO Q8H PRN 09/19/24 pain #90 tabs aspirin 81 mg tablet,delayed 81 mg PO BID 30 days #60 tabs 09/19/24 release celecoxib 200 mg capsule (Celebrex) 200 mg PO BID PRN #60 caps 09/19/24 dexamethasone 4 mg tablet 4 mg PO DAILY #2 tabs 09/19/24 docusate sodium 100 mg capsule 100 mg PO BID #30 caps 09/19/24 (Colace) gabapentin 300 mg capsule 300 mg PO QHS #14 caps 09/19/24 oxycodone 5 mg tablet 5 mg PO Q4H PRN #18 tabs 09/19/24 Current Visit Medications: Current Medications Generic Name Dose Route Start Last Admin Trade Name Freq PRN Reason Stop Dose Admin Acetaminophen 1,000 mg 09/19/24 06:00 09/19/24 07:53 Acetaminophen 500 Mg Tab PO 10/18/24 23:59 1,000 mg PREOP CHERRY Administration Celecoxib 400 mg 09/19/24 06:00 09/19/24 07:53 Celecoxib 200 Mg Cap PO 10/18/24 23:59 400 mg PREOP CHERRY Administration Droperidol 0.625 mg 09/19/24 07:23 Droperidol 2.5 Mg/Ml Vial IVP 10/19/24 07:22 DIRECTED PRN Ephedrine Sulfate 0 mg 09/19/24 07:23 Ephedrine 25 Mg/5 Ml Syringe IVP 10/19/24 07:22 DIRECTED PRN Fentanyl 0 mcg 09/19/24 07:23 Fentanyl 100 Mcg/2 Ml Vial IVP 10/19/24 07:22 DIRECTED PRN Gabapentin 300 mg 09/19/24 06:00 09/19/24 07:53 Gabapentin 300 Mg Cap PO 10/18/24 23:59 300 mg PREOP CHERRY Administration Hydromorphone HCl 0.5 mg 09/19/24 07:19 Hydromorphone 2 Mg/Ml Syr IVP 10/19/24 07:18 Q2H PRN PRN Hydromorphone HCl 0 mg 09/19/24 07:23 Hydromorphone 2 Mg/Ml Syr IVP 10/19/24 07:22 DIRECTED PRN Ringer's Solution 1,000 mls @ 80 mls/hr 09/19/24 06:00 09/19/24 07:54 IV 10/18/24 23:59 80 mls/hr INFUSION CHERRY Administration Cefazolin Sodium/Dextrose 2 gm in 50 mls @ 100 mls/hr 09/19/24 06:00 Ancef Duplex IVPB 10/18/24 23:59 PREOP CHERRY Tranexamic Acid/Sodium Chloride 1,000 mg in 100 mls @ 600 mls/hr 09/19/24 06:00 IVPB 10/18/24 23:59 PREOP CHERRY Cefazolin Sodium/Dextrose 1 gm in 50 mls @ 100 mls/hr 09/19/24 08:00 Ancef Duplex IVPB 09/20/24 00:29 Q8H CHERRY IV Miscellaneous Supplies 1 each 09/19/24 06:00 Iv Access IV 10/18/24 23:59 DIRECTED CHERRY Naloxone HCl 0 mg 09/19/24 07:23 Naloxone 0.4 Mg/Ml Vial IVP 10/19/24 07:22 PRN PRN Oxycodone HCl 0 mg 09/19/24 07:19 Oxycodone 5 Mg Tab PO 10/19/24 07:18 Q3H PRN PRN Pain Sodium Chloride 0 ml 09/19/24 06:00 Normal Saline Flush 10 Ml Syr IV 10/18/24 23:59 PRN PRN Sodium Chloride 0 ml 09/19/24 06:00 Normal Saline 10 Ml Vial IJ 10/18/24 23:59 DIRECTED PRN Sterile Water 0 ml 09/19/24 06:00 Water,Injection,Sterile 10 Ml Vial IJ 10/18/24 23:59 DIRECTED PRN PFSH Active Problems Active Problems: Problem Status Onset Code 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 Hypothyroid Chronic E03.9 Osteoarthritis of knees, bilateral Acute M17.0 Diabetes Chronic E11.9 Hyperlipidemia Acute E78.5 Hypertension Chronic I10 Surgical History Surgical History History of total right knee replacement (04/25/24) Status post arthroscopy of right knee Status post excision of lipoma Left shoulder S/P colonoscopy Tobacco Smoking/Tobacco Use Status: Former Tobacco Use Alcohol Alcohol Intake: current Alcohol intake frequency: a few times a month Alcohol type: beer Substance Use Substance use: Never Substance use type: does not use Vital Signs and Lab Results Vital Signs Most Recent Vital Signs in EMR: Most Recent Vital Signs Temp Pulse Resp BP Pulse Ox 35.9 C L 75 16 140/70 98 09/19/24 07:22 09/19/24 07:22 09/19/24 07:22 09/19/24 07:22 09/19/24 07:22 Point of Care Results Point of Care Results: Finger Stick Blood Glucose 138 09/19/24 07:18 Lab Results Blood Type / Crossmatch: No Data to Display Complete Blood Count: White Blood Count 9.25 10^3/uL (4.4-10.8) 09/04/24 10:40 Red Blood Count 5.19 10^6/uL (4.36-5.78) 09/04/24 10:40 Hemoglobin 14.3 g/dL (13.5-17.5) 09/04/24 10:40 Hematocrit 41.6 % (40.0-50.0) 09/04/24 10:40 Platelet Count 307 10^3/uL (130-400) 09/04/24 10:40 Complete Metabolic Panel: Sodium 137 mmol/L (136-145) 09/04/24 10:40 Potassium 4.1 mmol/L (3.5-5.1) 09/04/24 10:40 Chloride 99 mmol/L (98-107) 09/04/24 10:40 Carbon Dioxide 32.2 mmol/L (21.0-32.0) H 09/04/24 10:40 BUN 11 mg/dL (7-18) 09/04/24 10:40 Creatinine 1.1 mg/dL (0.70-1.30) 09/04/24 10:40 Est GFR (CKD-EPI 2020) 76.85 (mL/min/1.73m2) 09/04/24 10:40 Calcium 9.5 mg/dL (8.5-10.1) 09/04/24 10:40 Glucose 86 mg/dL (74-106) 09/04/24 10:40 Hemoglobin A1c 6.9 % (<5.7) H 09/04/24 10:40 Liver Function Panel: No Data to Display Coagulation Panel: No Data to Display Cardiac Panel: No Data to Display Arterial Blood Gas: No Data to Display Venous Blood Gas: No Data to Display Pancreas Panel: No Data to Display Thyroid Panel: No Data to Display Infectious Disease: No Data to Display Blood Cultures: No Data to Display Toxicology Panel: No Data to Display Anesthesia Assessment and Plan Anesthesia History Personal History: No History of Anesthesia Complications Family History: No Family History of Anesthesia Complications Exercise Tolerance Exercise Tolerance: Metabolic Equivalents>4 Pertinent Negatives Pertinent Negatives: No Symptoms of GERD (RX) Cardiac & Pulmonary Exam Cardiac Exam: Normal S1/S2 Heart Sounds Pulmonary Exam: Clear Bilateral Breath Sounds Implantable Cardiac Device Does patient have a Pacemaker or an ICD?: No Airway Exam Known Difficult Airway: No Mallampati Class: 2 Mouth Opening: Normal (> 3cm) Thyromental Distance: Less than 3 cm Neck Range of Motion: Full ROM Neck Circumference: Normal Teeth Condition: Normal Dentition ASA Classification ASA Score: ASA 2 Emergency Case?: No NPO Status NPO Status: NPO Clears >2 hours, Solids >8 hours Anesthesia Plan Resuscitation Status: Full Code Anesthesia Technique: Spinal Anesthesia Airway Planned: Natural Airway Pain Management: Surgeon and patient request nerve block Monitors Used: Standard Monitors
--- NOTE | 2024-09-19 08:28 | W.ANESNERVE ---
Nerve Block Single Injection Procedure Date and Time Date Performed: 09/19/24 Procedure Start: 08:20 Location Where Procedure Performed Procedure Location: Day Surgery Unit Reason Performed: Postoperative Analgesia Requesting Provider: Getachew Fowler Timeout Performed Timeout Performed: Yes Monitoring Used ECG, Blood Pressure, SpO2 and See EMR for corresponding vital signs Sterility Sterility: Hand Hygiene, Surgical Cap, Surgical Mask, Sterile Gloves, Eye Protection and Chlorhexidine Sedation Given During Procedure Sedation Given (Indicate Dose Given): Versed IV Dose:: 3mg IVP Patient Mental Status Patient Mental Status: Sedate with meaningful communication Nerve Block 1st Nerve Block: Laterality: Left Block Type: Adductor Canal Ultrasound Image Saved?: Yes Needle / Catheter Used: 120mm SonoPlex II Local Anesthetic Bolus (Indicate Dose Given): Lidocaine used for local infiltration of skin (2%/1cc) and Ropivacaine 0.5% Dose:: 0.5%/25cc (125mg) Additives (Indicate Dose Given): Epinephrine to make 1:200,000 (5mcg/ml) Dose:: 125mcg and Decadron Dose:: 10mg PF Ultrasound: Sterile probe cover and gel used Nerve Stimulator: Supplement to Ultrasound use Paresthesia: None Procedure Tolerated: No Complications Procedure Outcome: Successful Performed By: Solis Prince
--- NOTE | 2024-09-19 09:19 | W.PM.OP ---
Operative Note Operative Note PRE-OP DIAGNOSIS: Left Knee Osteoarthritis POST-OP DIAGNOSIS: same PROCEDURE: Left Total Knee Replacement SURGEON: Getachew Fowler ETHNIC ORIGINS TEACHER: Fely De Santiago ANESTHESIA TYPE: Spinal Refer to Anesthesia Record ESTIMATED BLOOD LOSS: 75 PATHOLOGY: none sent TOURNIQUET TIME: 0 COMPLICATIONS: None Patient was transported to: PACU Patient's condition: stable Implants: 1. Depuy Attune Cementless Cruciate Retaining Femoral Component, Size 7 2. Depuy Attune Cementless Fixed Bearing Tibial Component, Size 7 3. Depuy Attune 7x8mm CR/FB Poly 4. Depuy Attune Patellar Component, Size 38 Indications: I have seen Angelo in clinic for symptoms of knee arthritis, confirmed with radiographic findings. He has exhausted nonoperative methods and was having significant limitations in daily function and desired better function and less pain. I discussed the technical details of a knee replacement. I explained the risks of the procedure to include, but not limited to, bleeding, infection, pain, stiffness, fracture, damage to nerves and vessels, damage to muscles and tendons, loosening, need for repeat procedure, blood clot and cardiopulmonary demise. Despite these risks, Angelo elected to proceed. Findings: There was significant signs of arthritis throughout the knee involving all 3 compartments. Procedure Description: Angelo was greeted in the preoperative holding area where the correct side was identified and marked. The consent was reviewed with the patient and signed. The history and physical was updated. All questions were answered. Preoperative medications were administered: Acetaminophen 1000mg, Celebrex 400mg, and Gabapentin 300mg. An adductor canal block was then administered by the anesthesia team in the DSU. Angelo was taken back to the operating room. A spinal anesthestic was then administered. The patient was placed into the supine position on the operating room table. Posts were placed for positioning during the procedure. All bony prominences were well padded. Prophylactic antibiotics in the form of Cefazolin were administered. 1g of Tranxemic Acid was given intravenously within 30 minutes of incision. The left leg was then prepped with Chloraprep and draped in a standard fashion with impervious stockinette. A second prep with Chloraprep was performed prior to application of Iodine impregnated skin protection. A timeout to confirm correct identity, side and site, procedure, allergies, anesthesia, and medical concerns was performed. With the knee in some flexion, a midline incision was made overlying the knee. Full thickness skin flaps were raised once the extensor mechanism was encountered. These were raised medially and laterally. Any bleeding was controlled with electrocautery. Once the extensor mechanism was fully exposed, a medial parapatellar arthrotomy was performed in a flexed position. All bleeding from the arthrotomy and the geniculate arteries was coagulated. A medial subperiosteal peel was performed with electrocautery to the midcoronal plane. Due to the significant varus deformity the entire medial tibial plateau was exposed. The fat pad was removed while keeping the patellar tendon protected. The anterior distal femur synovium was removed for later visualization. The ACL and PCL were resected and the anterior horn of the lateral meniscus was transected. The knee was then flexed with the patella everted. Large osteophytes from the tibia were removed. Large osteophytes from the femur were removed. Using a step drill, and based on preoperative templating, the femoral canal was entered. This was done with a step drill without any difficulty. The intramedullary distal femoral cut guide was inserted, set to a 5 degree valgus cut and 9mm cut thickness. The distal femoral cut guide was then held in position and pinned. With the soft tissues protected, the distal cut was performed. This was passed over a few times to ensure a planar cut. I then turned attention to the tibia. The extramedullary guide was placed onto the leg. The distal aspect was slid medial to adjust for position of center of ankle and stay in line with shaft of the tibia. Approximately 3-5 degrees of posterior slope was kept in the proximal cutting guide. The center of the guide was aligned with the PCL. The stylus was used to assess cut thickness. The medial side, most involved side, was set for a 4mm cut. This was then held in position and pinned into place with 2 additional pins and a cross pin for stability. The medial and lateral collateral ligaments were protected and the cut was performed. With this completed, it was assessed and noted to be of appropriate dimensions. The guide was removed. A spacer block was inserted and the knee was brought into extension. The 7mm spacer block provided full extension, without hyperextension and with stability of both the medial and lateral collateral ligaments was assessed. The pins from the femur and the tibia were then removed. The distal femur was then sized. The anterior stylus was placed onto the lateral ridge of the anterior femur. This indicated a size 7 femur. The external rotation of the guide was adjusted to 0 degrees to match the epicondylar axis, perpendicular to Malik?s line. The 4-in-1 cutting guide was the placed. The posterior medial femur cut was evaluated and appeared of good thickness. The spacer block was inserted underneath the cutting guide and stability was confirmed in 90 degrees of flexion. An jessica wing was used to confirm appropriate position of the anterior cut to avoid notching. This cutting guide was ensured to be flush on the cut surface and then pinned into place with headed pins. While protecting the soft tissues, quad tendon, and collateral ligaments, the anterior and posterior cuts were performed with a saw. The central two pins were removed and the posterior and anterior chamfers were cut next. The notch-cutting guide was placed. This was pinned to lateralize the femoral component as much as possible while keeping it flush on the cut surface. This was then pinned into position. A reciprocating saw was used to make the notch cut. A rasp smoothed the cut surfaces. The medial and lateral menisci were removed. A trial femoral component was then inserted, impacted down to the cut surfaces, and the lug holes were drilled. A provisional trial tibial component was placed and the knee was brought through range of motion. The polyethylene was trialed until there was good flexion and extension with excellent stability to the medial and lateral collaterals. The patella was tracking without thumbs. A size 8mm polyethylene component provided the best range of motion and stability with less than 2mm gapping with medial and lateral stress and full extension without significant hyperextension. The tibial cut surface was fully exposed. The tibia was then sized as a 7. The tibia had been previously marked during trialing to correspond to the center of the tibial component to help with rotation. The trial was aligned to this arnoldo, approximately rotated to the medial 1/3rd of the tibial tubercle. The trial was pinned into place. The tibia was prepared with a reamer and a keel punch and lug holes. The knee was then brought into extension and the patella was measured as 25mm. Using the patellar clamp and cut guide, this was resected to a flat surface with at least 13mm of thickness remaining. The size 38 patella fit the best. This was oriented and then clamped into position. The lugs were drilled. The trial components were removed. The final components were opened on the back table. The periosteal and capsular tissues, especially posteriorly, around the knee were then systematically injected with a periarticular cocktail consisting of 246mg of Ropivacaine, 0.5mg of Epinephrine, 0.08mg of Clonidine, and 30mg of Ketorolac, diluted to 100cc. On the back table, with the implants opened, the cement was mixed. One batch of high viscosity cement was prepared with vacuum assistance. After the cement was ready a small amount was placed on the cut surface of the patella and the patellar button was clamped into position and held. While the cement was hardening, the cementless knee components were placed. Starting with the tibial component, the tibia was subluxed anteriorly and the lug holes of the component were lined up. The tibia was then impacted with an impactor and mallet until the tibial component was in contact with the tibia. The final polyethylene component was inserted. Then, the femoral component was inserted. The lug holes were aligned and the component was impacted into position. The knee was irrigated with Surgiphor Betadine solution. This was allowed to sit in the knee for 3 minutes and then it was irrigated out with saline. After the cement had finally cured, approximately 15min, the clamp was removed from the patella and the knee was taken through range of motion. The patella was tracking with a no-thumbs technique. The capsule was then reapproximated with a No. 1 Vicryl at multiple locations. The capsule was finally closed with a No. 2 Stratafix, barbed suture. The second dosing of 1g TXA was started. Deep tissues were then reapproximated with 0 Vicryl and 2-0 Vicryl. The skin was closed with a running 3-0 Monocryl in a subcuticular fashion. This was reinforced with skin glue. A Mepilex silver dressing was applied along with a [id number] WINSTON wrap. A CryoCuff was applied. Angelo was transferred to the hospital bed without difficulty an suffering no apparent complication. Angelo has a good prognosis. Physical therapy will start today and without restrictions, weight-bearing as tolerated. Aspirin 81mg BID will be used for DVT prophylaxis. Date of Procedure: 09/19/24
[2024-09-19] MEDS: ceFAZolin 2 GM/50 ML BAG IVPB (09:20)
[2024-09-19] MEDS: TRANEXAMIC ACID/SOD. CHL. 1,000 MG/100 ML BAG 600 MG IVPB (09:28)
[2024-09-19] MEDS: fentaNYL 100 MCG/2 ML VIAL IVP ×2 (11:15→11:20)
[2024-09-19] MEDS: HYDROmorphone 2 MG/ML SYR IVP ×3 (11:32→12:02)
[2024-09-19] MEDS: Normal Saline 10 ML VIAL IJ (11:32)
--- NOTE | 2024-09-19 11:57 | W.ANESPOSTOP ---
Postoperative Evaluation Date, Time and Location Date Performed: 09/19/24 Time Performed: 11:57 Patient Location: PACU Vital Signs Most Recent Imported Vital Signs: Most Recent Vital Signs Temp Pulse Resp BP Pulse Ox 36.6 C 75 16 134/72 96 09/19/24 11:40 09/19/24 08:11 09/19/24 08:11 09/19/24 08:11 09/19/24 08:11 Pain Score Most Recent Pain Score: Most Recent Pain Score Pain Level 8 09/19/24 11:40 Assessment Mental Status: Awake (Alert & Oriented to Patient Baseline) Airway and Respiratory Function: Patent airway with normal (patient baseline) respiratory exam Cardiovascular Function: Hemodynamically Stable Hydration Status: Adequately Hydrated Nausea & Vomiting: No Nausea or Vomiting Pain: Pain is tolerable per patient Peripheral Nerve Block: Regional nerve block not resolved at time of post operative discharge
[2024-09-19] MEDS: oxyCODONE 5 MG TAB PO ×2 (12:37→12:58)
--- NOTE | 2024-09-19 13:58 | IN_ITS ---
PT Notes Visit Reasons: Left knee DJD Physical Therapy Day Surgery Initial Evaluation Date: 09/19/2024 Referring Doctor: Fely De Santiago, Dr Fowler PT Orders: PT CONSULT: s/p Ortho surgery Precautions: WBAT LLE, TEDS x 2 weeks Patient Profile/Admitting Diagnosis: Pt is 58 yo male presenting s/p elective Left TKA d/t OA, DJD. under spinal anesthesia. Post op uncomplicated. PMHX: HTN, DM, OA, HLD Social History/Home Situation: Pt resides with in 1 story home with 3 [place] with B rails. Pt independent without ADfor ambulation, Independent ADL, yard work, meal prep, driving. Equipment Owned/DME: [facility] Subjective: Pt reports he is feeling tired but the pain is manageable so he is ready to get moving. Objective: [] General Observation: presents semireclined, present cryocuff to left knee Mental Status: A+ O x 4 cooperative motivated Pain: 3-4 left knee ROM: [] Right Upper Extremity: WNL Left Upper Extremity: WNL Right Lower Extremity: WNL knee 0-128degrees, hip IR to neutral Left Lower Extremity: WNL except knee 0-108, hip IR to neutral Strength: Right Upper Extremity: 5/5 Left Upper Extremity: 5/5 Right Lower Extremity:4/5 knee Left Lower Extremity: Hip flexion: 3- /5; hip abduction: 3- /5; hip extension: 3- /5; knee extension: 3 /5; knee flexion: 2+ /5 ankle DF: 3/5 ; ankle PF: 3 /5; Demonstrates strong quad set able to isolate quad without compensation of glutes and hamstring when cued. performed SLR in reduced range without lag for 2/5 reps Sensation:intact Bed Mobility/Transfers: Supine to sit independent Sit to stand supervision cues for hand placement Stand to sit supervision cues for hand placement Bed to chair supervision with FWW Gait: amb with FWW with SBA 150 feet level surfaces with turns. Pt demonstrates ER BLE L>R, impaired knee flexion during swing phase , early heel off excessive hip hike Stairs 5 steps with 2 rails CGA step to pattern Balance: [] Static Sitting: Normal Dynamic Sitting: good Static Standing: good Dynamic Standing: Fair + Special Tests: [] Mobility Limitations Standardized Measure [] [facility] AM-PAC 6 clicks Basic Mobility Inpatient Short Form: [] Raw Score: 23 CMS Score: 11.20% Informed Consent/Education: Patient instructed in purpose of PT consult. Packet containing TKA exercise protocol has been given to patient. Education and training on initial set of exercises that can be done at home have been completed with patient. Assessment: Patient presents with clinical signs and symptoms consistent with current/admitting diagnoses that have resulted to mobility limitations, gait instability, generalized weakness, and impairment of motor control as demonstrated by the following impairment level findings: 1. Decreased strength to left knee major muscle groups 2. Impaired standing balance 3. Limitation of joint range of motion in left knee 4. Impaired activity tolerance Impairments are contributing to the following functional limitations: 1. Inability to safely ambulate without assistive device 2. Increase completion time for mobility ADL performance 3. Increased fall risk 4. difficulty performing stairs safely alone Patient is assessed as a low complexity based on the following: History: 58-year-old male with impairment level findings, functional l imitations, and past medical history as indicated above Examination: Demonstrable impairment in strength, balance, and mobility level with underlying impairments and functional limitations as documented above Presentation: stable Decision Making: low Goals: N/A. Plan of Care/Treatment Plan: N/A. DISCHARGE RECOMMENDATIONS: Home with HEP and outpatient PTas scheduled TREATMENT CODE/TIME: 55655/ [id number] Thank you for the opportunity to participate in the care of this patient. Tram Desai PT [facility]
== END 2024-09-19 14:22 | disposition home or self-care (01) ==
PROVIDERS: PCP Nurse Practitioner Family; Visit Provider Student in an Organized Health Care Education/Training Program
PROC: (CPT 27447; principal; 2024-09-19 09:30)
DX: M17.12 Unilateral primary osteoarthritis, left knee (principal); G89.18 Other acute postprocedural pain; M25.562 Pain in left knee; E11.9 Type 2 diabetes mellitus without complications; Z79.84 Long term (current) use of oral hypoglycemic drugs; E78.5 Hyperlipidemia, unspecified; I10 Essential (primary) hypertension
CPT/HCPCS: 27447; 64447; 97161; C1776; J0171; J0690; J1100; J1171; J2003; J2250; J2371; J2401; J2405; J2704; J3010

== ENCOUNTER 2024-10-02 12:56 | Outpatient (CLI) | payer OTHER, SELFPAY ==
--- NOTE | 2024-10-02 11:20 | DI.RAD_ITS ---
Exam(s) XR KNEE LT 1V XR STANDING ALIGNMENT EXAM: XR STANDING ALIGNMENT CLINICAL HISTORY: 1ST POST OP S/P L TKA. TECHNIQUE: 2D digital imaging was performed. Standing AP views were performed from the pelvis throu gh the ankles. Lateral view of the left knee COMPARISON: CR XR STANDING ALIGNMENT from 05/11/2024 CR XR KNEE LT 1V from 10/02/2024 FINDINGS: BONES: No acute fracture is present. No bony destructive lesion is seen. Leg length discrepancy: Approximate 10 millimeter overall leg length discrepancy at the level of the femoral heads with the right projecting superior to the left. JOINTS: Knees: Bilateral total knee prostheses are in place with satisfactory alignment. The left is new since the prior exam The ankle joints are unremarkable. The hip joints are unremarkable. SOFT TISSUE: Left lower leg edema. IMPRESSION: Bilateral total knee prostheses. Mild overall leg length discrepancy. DATA REPOSITORY: RADIATION DOSE DELIVERED:
== END 2024-10-02 12:57 | disposition home or self-care (01) ==
LOC: DIORS 12:57
PROVIDERS: PCP Nurse Practitioner Family; Visit Provider Physician Assistant
DX: Z96.652 Presence of left artificial knee joint (principal); Z47.1 Aftercare following joint replacement surgery
CPT/HCPCS: 73560; 77073

== ENCOUNTER 2025-01-08 09:02 | Outpatient (CLI) | payer OTHER, SELFPAY ==
--- NOTE | 2025-01-08 08:15 | DI.RAD_ITS ---
Exam(s) XR FINGER RT INDEX EXAM: XR FINGER RT INDEX CLINICAL HISTORY: mass R finger. TECHNIQUE: 2D digital imaging was performed of the right finger. Three views were obtained. PA/AP, oblique, and lateral views were obtained. COMPARISON: No exams were available for comparison FINDINGS: BONES: No acute fracture is present. No bony destructive lesion is seen. JOINTS: No dislocation present. SOFT TISSUE: There is a 5.5 mm density in the soft tissues on the dorsal and radial aspect of the rig ht index finger adjacent to the middle phalanx. There is an associated large soft tissue swelling pr esent. The underlying bone is unremarkable. No destructive changes are seen. IMPRESSION: 1. 5.5 mm density in the soft tissues of the posterior and radial aspect of the right index finger wi th associated soft tissue swelling. This may represent a foreign body. Calcification within the sof t tissue mass cannot be excluded. Please correlate with patient's clinical history. 2. The adjacent bone shows no destructive changes or fracture. DATA REPOSITORY: RADIATION DOSE DELIVERED:
== END 2025-01-08 09:03 | disposition home or self-care (01) ==
LOC: DIORS 09:03
PROVIDERS: PCP Nurse Practitioner Family; Referring Provider Nurse Practitioner Family; Visit Provider Physician Assistant
DX: M67.441 Ganglion, right hand (principal); Z96.652 Presence of left artificial knee joint; S60.450A Superficial foreign body of right index finger, initial encounter
CPT/HCPCS: 73140

== ENCOUNTER 2025-02-13 10:24 | Day surgery (SDC) | payer OTHER, SELFPAY ==
--- NOTE | 2025-02-13 07:38 | PDOC.DSDIS_ITS ---
Date of service: 02/13/25 Discharge Plan Disposition Patient Disposition: Home Condition: Good Discharge Details Reason For Visit: Right index finger mass Attending Provider: Getachew Fowler Primary Care Provider: Dick Quiros Home Meds and New Rx's Prescriptions: New hydrocodone-acetaminophen 5-325 mg tablet 1 tab PO Q6H PRN (Reason: severe pain) Qty: 3 0RF Rx Instructions: Take one tablet up to every 6 hours as needed for severe postoperative pain Continued omeprazole 20 mg capsule,delayed release(DR/EC) 20 mg PO HS cholecalciferol (vitamin D3) 125 mcg (5,000 unit) capsule 125 mcg PO DAILY ascorbic acid (vitamin C) 1,000 mg capsule 1 g PO Q6H valsartan 320 mg tablet 320 mg PO DAILY amlodipine 10 mg tablet 10 mg PO DAILY hydrochlorothiazide 25 mg tablet 25 mg PO DAILY levothyroxine 88 mcg capsule 88 mcg PO DAILY atorvastatin 20 mg tablet 20 mg PO DAILY sitagliptin 100 mg tablet 100 mg PO DAILY Qty: 30 0RF glipizide 5 mg tablet See Rx Instructions .ROUTE .COMPLEX Qty: 30 2RF Dose Instruction: TAKE ONE TABLET BY MOUTH ONCE DAILY Rx Instructions: TAKE ONE TABLET BY MOUTH ONCE DAILY ibuprofen 600 mg tablet 600 mg PO TID PRN (Reason: pain) Qty: 90 1RF acetaminophen 500 mg tablet See Rx Instructions .ROUTE .COMPLEX Qty: 90 0RF Dose Instruction: TAKE TWO TABLETS BY MOUTH up to EVERY EIGHT HOURS NEEDED for pain. Rx Instructions: TAKE TWO TABLETS BY MOUTH up to EVERY EIGHT HOURS NEEDED for pain. Discharge Instructions Additional Instructions: Finger Mass Excision Discharge Instructions Activity: You should keep the hand elevated as much as possible for the first few days. You may use the other fingers as tolerated but avoid trying to do too much too soon. You may perform light activities with the splint in place. Dressing/Cast: Your dressing should stay in place at all times. Do NOT get it wet. You may loosen the [place] wrap if you feel it is too tight and then rewrap more loosely. After 48 hours you may remove dressing, clean area and cover with a light gauze dressing or bandaide. Continue with daily dressing changes until your follow-up visit. Medications: - You should take Tylenol and Ibuprofen for baseline pain control. - You have Hydrocodone for breakthrough pain. Follow-up: 7-10 days Referrals: Getachew Fowler MD [ [facility] STAFF PHYSICIAN, Orthopaedic Surgical] Activity:: Elevate Remove Dressings/Wound Care:: 48 hours Shower/Bathe:: 48 hours Diet:: As Tolerated Discharge Orders Discharge Orders: Discharge Order (Routine); Ordered 02/13/25 Ordered By: Fely De Santiago
[2025-02-13 10:26] VITALS: BP 146/65; PULSE 74; RESP 16; TEMP 36; O2SAT 99
[2025-02-13] MEDS: Lidocaine 1% Multi-Dose W/EPI 1/100,000 50 ML VIAL (12:37)
[2025-02-13] MEDS: Sodium Bicarbonate 50 MEQ/50 ML VIAL (12:39)
--- NOTE | 2025-02-13 12:40 | SKI_PTH ---
PATIENT: Angelo Valentine LOC: [facility] U#:[id number] AGE/SX: 59/M ROOM: RE02/13/[address]: Getachew Fowler MD : [id number] BED: DIS: 02/13/2025 SPEC #: [id number] RECD: 02/14/25 09:41 STATUS: [facility] REQ #: [id number] JENIFER: 02/13/25 12:[address]: Getachew Fowler DEPT: Surgical Specimen RECD BY: Arelis Markham ENTERED: 02/14/25 09:42 SP TYPE: SKI OTHR DR: Dick Quiros Tissues: 1 - SKIN BIOPSY(SHAVE/PUNCH) Procedures: GROSS AND MICRO LEVEL 5 Comments: [id number]
[2025-02-13 13:06] VITALS: BP 129/62; PULSE 75; RESP 18; TEMP 36.6; O2SAT 95
--- NOTE | 2025-02-13 13:08 | ROE_ITS ---
Operative Note Operative Note PRE-OP DIAGNOSIS: Right index finger mass POST-OP DIAGNOSIS: same PROCEDURE: Excisional Biopsy of Right Index finger Mass SURGEON: Getachew Fowler ANESTHESIA TYPE: Local By Surgeon Refer to Anesthesia Record ESTIMATED BLOOD LOSS: 5 PATHOLOGY: other (Circumscribed mass about the right index finger adherent but not invasive to surrounding tissues.) COMPLICATIONS: None Patient was transported to: same day Patient's condition: stable Indications: I have seen Angelo in clinic for symptoms of a digital mucous cyst. The mass persisted and caused pain to direct contact and with use. The diagnosis of a mucous cyst was made. The symptoms had not responded to conservative measures. I discussed cyst excision with the patient. I reviewed the risks of the procedure to include, but not limited to, bleeding, infection, pain, stiffness, recurrence, damage to nerves or vessels. Despite these risks, the patient elected to proceed. Findings: There was a mass of the dorsal radial aspect of the right index finger along the middle phalanx. This was adherent to the deeper fascia but did not violate the deeper fascial structures, joint, or into the bone. It was slightly irregular although well-circumscribed with an area of white discoloration proximally and more of a brown, hemosiderin type discoloration distally. A small hole was made in his removal which had a clear?green fluid. This was removed in whole and sent to pathology. Procedure Description: Angelo was greeted in the preoperative holding area where the correct side was identified and marked. The consent was reviewed with the patient and signed. All questions were answered. He was taken back to the operating room. The patient was placed into the supine position on the operating room table with the right arm on an arm board. All bony prominences were well padded. No prophylactic antibiotics were administered since this was a clean, elective hand surgical case. The right arm was then prepped with Chloraprep and draped in a standard fashion with stockinette and extremity drape. A timeout to confirm correct identity, side and site, procedure, allergies, anesthesia, and medical concerns was performed. A digital block was then performed using 1% lidocaine with epinephrine and buffered with sodium bicarbonate. This was allowed time to set up completely and was tested before proceeding with the case. A longitudinal incision was then made overlying the mass. The skin was incised sharply. Full-thickness flaps were then elevated to expose the capsule. There was irregularity to the mass yet there was a clear boundary. I was able to easily dissect soft tissues away from it superficially. There is more adherence on the deep surface. There is some investing fascia but for the most part the cyst laid on top of the deep fascia of the finger although adherent to the deeper layer. There is a white discoloration proximally with some irregularity and a more hemosiderin brown type appearance distally. The mass was removed by incising and bluntly dissecting adhesions between the mass capsule and the other tissues. There appeared to be no invasion of this mass in any other tissues. It was able to be removed in whole with a minor puncture to the proximal aspect where some clear to screen fluid drained. This was sent to pathology. The finger was irrigated and once again checked for any remnant material. The skin was then closed using a #4-0 nylon in interrupted fashion, everting the skin ed ges to close down the space and approximate the excess skin. The finger was dressed with Xeroform, 4 x 4, conform dressing. The patient tolerated the procedure well and was returned to the Same Day Surgery area in a stable condition suffering no known complication. Date of Procedure: 02/13/25
== END 2025-02-13 13:13 | disposition home or self-care (01) ==
LOC: SUR 10:24
PROVIDERS: PCP Nurse Practitioner Family; Visit Provider Student in an Organized Health Care Education/Training Program
PROC: (CPT 26160; principal; 2025-02-13 12:15)
DX: L90.5 Scar conditions and fibrosis of skin (principal); R22.31 Localized swelling, mass and lump, right upper limb
CPT/HCPCS: 26160; 88305; 88307; J2004

== ENCOUNTER 2025-07-23 15:59 | Outpatient (CLI) | payer OTHER, SELFPAY ==
--- NOTE | 2025-07-23 15:15 | DI.RAD_ITS ---
Exam(s) XR KNEE LT 2V AP,LAT EXAM: XR KNEE LT 2V AP,LAT INDICATION: ANNUAL F/U L TKA. COMPARISON: CR XR STANDING ALIGNMENT from 10/02/2024 CR XR KNEE LT 1V from 10/02/2024 TECHNIQUE: 2D digital imaging was performed. Two views. FINDINGS: Stable alignment of the left total knee prosthesis. No abnormal surrounding bony lucencies. Tiny joint effusion. DATA REPOSITORY: RADIATION DOSE DELIVERED:
--- NOTE | 2025-07-23 15:15 | DI.RAD_ITS ---
Exam(s) XR KNEE RT 2V AP,LAT EXAM: XR KNEE RT 2V AP,LAT INDICATION: ANNUAL F/U R TKA. COMPARISON: CR XR KNEE RT 1V from 05/11/2024 CR XR STANDING ALIGNMENT from 10/02/2024 CR XR KNEE LT 1V from 10/02/2024 TECHNIQUE: 2D digital imaging was performed. Two views. FINDINGS: The total knee prosthesis shows no change in alignment. There are no abnormal surrounding lucencies. Tiny joint effusion. Soft tissues are unremarkable. DATA REPOSITORY: RADIATION DOSE DELIVERED:
== END 2025-07-23 16:00 | disposition home or self-care (01) ==
LOC: DIORS 15:59
PROVIDERS: PCP Nurse Practitioner Family; Visit Provider Student in an Organized Health Care Education/Training Program
DX: Z96.651 Presence of right artificial knee joint (principal); Z96.652 Presence of left artificial knee joint
CPT/HCPCS: 73560